=== PATIENT | male | born 1960 | race Caucasian/White ===

== ENCOUNTER → 2017-07-10 | Outpatient (CLI) | payer OTHER | END | disposition home or self-care (01) | LOC: PCVCIMAG 14:34 | DX: R07.9 Chest pain, unspecified (principal); R07.2 Precordial pain; I49.3 Ventricular premature depolarization; E78.5 Hyperlipidemia, unspecified; I49.9 Cardiac arrhythmia, unspecified | CPT/HCPCS: 93325; 93351 ==